=== PATIENT | female | born 1980 | race Caucasian/White ===

== ENCOUNTER 2017-02-12 08:35 | Emergency (ER) | payer OTHER ==
[~2017-02-12] VITALS: Ht 165.1 cm; Wt 122.5 kg
[~2017-02-12 08:35] MED LIST: ACETAMINOP80 MG/0.8 PO; ALBUTEROL SULF8.5 GM INH; ALBUTEROL2.5 MG/3 M INH; AMARYL4 MG PO; ATROVENT HFA12.9 GM INH; AURALGAN EAR DR14 ML OT; AZITHROMYCIN250 MG PO; AZITHROMYCIN500 MG PO; BACTRIM DS TAB1 EACH PO; BENADRYL25 MG PO; CLINDAMYCIN HC150 MG PO; CLINDAMYCIN HC300 MG PO; COREG25 MG PO; COZAAR100 MG PO; FUROSEMIDE40 MG PO; GUAIFENESIN-CO118 ML PO; HYCODAN SYRUP480 ML PO; IPRAT-ALBUT 0.5-3 ML INH; KETOROLAC TROME10 MG PO; LANTUS100 UNIT/1 SUB-Q; LASIX20 MG PO; LEVAQUIN500 MG PO; LEVAQUIN750 MG PO; METFORMIN HCL1000 MG PO; MUPIROCIN22 GM TOP; NORCO 5-325 TA1 EACH PO; ONE DAILY WOME1 EACH PO; PREDNISONE20 MG PO; PROAIR HFA8.5 GM INH; PROCHLORPERAZIN10 MG PO; PROVENTIL HFA6.7 GM INH; QVAR7.3 G1 INH; REGLAN10 MG PO; TRAMADOL HCL50 MG PO; ULTRAM50 MG PO; VENTOLIN HFA18 GM INH
[2017-02-12] MEDS ORDERED: TESSALON PERLE100 MG PO (09:14)
[2017-02-12] MEDS ORDERED: LEVAQUIN500 MG PO (09:14)
[2017-02-12] MEDS ORDERED: NORCO 10-325 T1 EACH PO (18:43)
== END 2017-02-12 10:00 | disposition home or self-care (01) ==
LOC: ED 08:35
DX: H66.91 Otitis media, unspecified, right ear (principal); E11.9 Type 2 diabetes mellitus without complications; I10 Essential (primary) hypertension; J45.909 Unspecified asthma, uncomplicated; F17.200 Nicotine dependence, unspecified, uncomplicated; Z87.01 Personal history of pneumonia (recurrent); Z86.14 Personal history of Methicillin resistant Staphylococcus aureus infection; Z98.51 Tubal ligation status; Z91.09 Other allergy status, other than to drugs and biological substances; Z88.0 Allergy status to penicillin; Z88.2 Allergy status to sulfonamides; Z88.1 Allergy status to other antibiotic agents; Z88.8 Allergy status to other drugs, medicaments and biological substances; Z88.6 Allergy status to analgesic agent; Z79.899 Other long term (current) drug therapy; Z79.84 Long term (current) use of oral hypoglycemic drugs
CPT/HCPCS: 96372; 99283; J1885

== ENCOUNTER 2017-02-12 17:36 | Emergency (ER) | payer OTHER ==
[~2017-02-12] VITALS: Ht 165.1 cm; Wt 122.5 kg
[~2017-02-12 17:36] MED LIST changes: +TESSALON PERLE100 MG PO
[2017-02-12] MEDS ORDERED: NORCO 10-325 T1 EACH PO (18:43)
== END 2017-02-12 19:10 | disposition home or self-care (01) ==
LOC: ED 17:36
DX: H92.01 Otalgia, right ear (principal); E11.9 Type 2 diabetes mellitus without complications; I10 Essential (primary) hypertension; J45.909 Unspecified asthma, uncomplicated; F17.200 Nicotine dependence, unspecified, uncomplicated; Z87.01 Personal history of pneumonia (recurrent); Z86.14 Personal history of Methicillin resistant Staphylococcus aureus infection; Z98.51 Tubal ligation status; Z91.09 Other allergy status, other than to drugs and biological substances; Z88.0 Allergy status to penicillin; Z88.2 Allergy status to sulfonamides; Z88.1 Allergy status to other antibiotic agents; Z88.8 Allergy status to other drugs, medicaments and biological substances; Z88.5 Allergy status to narcotic agent; Z88.6 Allergy status to analgesic agent; Z79.899 Other long term (current) drug therapy; Z79.84 Long term (current) use of oral hypoglycemic drugs
CPT/HCPCS: 99283

== ENCOUNTER 2017-02-13 02:11 | Emergency (ER) | payer OTHER ==
[~2017-02-13] VITALS: Ht 165.1 cm; Wt 122.5 kg
[~2017-02-13 02:11] MED LIST changes: +NORCO 10-325 T1 EACH PO
== END 2017-02-13 02:50 | disposition home or self-care (01) ==
LOC: ED 02:11
DX: H60.91 Unspecified otitis externa, right ear (principal); E11.9 Type 2 diabetes mellitus without complications; I10 Essential (primary) hypertension; Z86.14 Personal history of Methicillin resistant Staphylococcus aureus infection; J45.909 Unspecified asthma, uncomplicated; F17.200 Nicotine dependence, unspecified, uncomplicated; Z87.01 Personal history of pneumonia (recurrent); Z98.51 Tubal ligation status; Z91.09 Other allergy status, other than to drugs and biological substances; Z88.0 Allergy status to penicillin; Z88.2 Allergy status to sulfonamides; Z88.1 Allergy status to other antibiotic agents; Z88.8 Allergy status to other drugs, medicaments and biological substances; Z88.5 Allergy status to narcotic agent; Z79.899 Other long term (current) drug therapy; Z79.84 Long term (current) use of oral hypoglycemic drugs
CPT/HCPCS: 99282

== ENCOUNTER 2017-02-18 11:31 | Emergency (ER) | payer OTHER ==
[~2017-02-18] VITALS: Ht 162.6 cm; Wt 90.7 kg
[2017-02-18] MEDS ORDERED: ATROVENT HFA12.9 GM INH (11:48)
[2017-02-18] MEDS ORDERED: PREDNISONE20 MG PO (11:48)
[2017-02-18] MEDS ORDERED: VENTOLIN HFA18 GM INH (11:48)
[2017-02-18] MEDS ORDERED: ALBUTEROL2.5 MG/3 M INH (13:20)
== END 2017-02-18 13:37 | disposition home or self-care (01) ==
LOC: ED 11:31
DX: J44.1 Chronic obstructive pulmonary disease with (acute) exacerbation (principal); E11.9 Type 2 diabetes mellitus without complications; Z86.14 Personal history of Methicillin resistant Staphylococcus aureus infection; F17.200 Nicotine dependence, unspecified, uncomplicated; Z98.51 Tubal ligation status; Z88.0 Allergy status to penicillin; Z88.1 Allergy status to other antibiotic agents; Z88.2 Allergy status to sulfonamides; Z88.5 Allergy status to narcotic agent; Z88.8 Allergy status to other drugs, medicaments and biological substances; J45.909 Unspecified asthma, uncomplicated
CPT/HCPCS: 71010; 94640; 99283; J7512

== ENCOUNTER 2017-03-05 19:29 | Emergency (ER) | payer OTHER ==
[~2017-03-05] VITALS: Ht 162.6 cm; Wt 125.6 kg
[2017-03-05] MEDS ORDERED: TRAMADOL HCL50 MG PO (21:47)
== END 2017-03-05 21:58 | disposition home or self-care (01) ==
LOC: ED 19:29
DX: R10.9 Unspecified abdominal pain (principal); E11.9 Type 2 diabetes mellitus without complications; I10 Essential (primary) hypertension; Z86.14 Personal history of Methicillin resistant Staphylococcus aureus infection; F17.200 Nicotine dependence, unspecified, uncomplicated; Z98.51 Tubal ligation status; Z88.2 Allergy status to sulfonamides; Z88.0 Allergy status to penicillin; Z91.048 Other nonmedicinal substance allergy status; Z88.1 Allergy status to other antibiotic agents; Z88.6 Allergy status to analgesic agent; Z88.5 Allergy status to narcotic agent; Z88.8 Allergy status to other drugs, medicaments and biological substances; Z79.899 Other long term (current) drug therapy; Z79.84 Long term (current) use of oral hypoglycemic drugs; Z79.82 Long term (current) use of aspirin; Z79.51 Long term (current) use of inhaled steroids; J45.909 Unspecified asthma, uncomplicated
CPT/HCPCS: 74176; 81001; 96372; 99284; J1885

== ENCOUNTER 2017-04-24 21:12 | Emergency (ER) | payer OTHER ==
[~2017-04-24] VITALS: Ht 162.6 cm; Wt 125.6 kg
[2017-04-24] MEDS ORDERED: POTASSIUM CHLO20 ME1 PO (23:46)
[2017-04-24] MEDS ORDERED: PREDNISONE20 MG PO (23:46)
[2017-04-24] MEDS ORDERED: LASIX40 MG PO (23:46)
[2017-04-24] MEDS ORDERED: ELIQUIS5 MG PO (23:46)
--- NOTE | 2017-04-25 17:52 | EKG ---
[facility] [address] [place] [address] Signed Normal sinus rhythm Left posterior fascicular block Abnormal ECG When compared with ECG of 12-JAN-2016 19:18, Nonspecific T wave abnormality now evident in Anterolateral leads Confirmed by MAK CARIAS MD ([id number]) on 04/25/2017 5:51:59 PM Electronically Signed By: MAK CARIAS MD 04/25/17 1752 PATIENT NAME: CHAY ANNE NANCY Electrocardiogram DATE OF : 80 PHYSICIAN: MAK CARIAS MD REPORT #: [id number] REPORT IS CONFIDENTIAL AND NOT TO BE RELEASED WITHOUT AUTHORIZATION
[2017-05-20] MEDS ORDERED: LEVAQUIN750 MG PO (00:33)
[2017-05-20] MEDS ORDERED: ZOFRAN ODT4 MG PO (00:33)
== END 2017-04-24 23:57 | disposition home or self-care (01) ==
LOC: ED 21:12
DX: J81.1 Chronic pulmonary edema (principal); R79.89 Other specified abnormal findings of blood chemistry; E11.9 Type 2 diabetes mellitus without complications; I10 Essential (primary) hypertension; J45.909 Unspecified asthma, uncomplicated; F17.200 Nicotine dependence, unspecified, uncomplicated; Z87.01 Personal history of pneumonia (recurrent); Z98.51 Tubal ligation status; Z98.818 Other dental procedure status; Z88.8 Allergy status to other drugs, medicaments and biological substances; Z88.0 Allergy status to penicillin; Z88.2 Allergy status to sulfonamides; Z88.1 Allergy status to other antibiotic agents; Z88.6 Allergy status to analgesic agent; Z79.84 Long term (current) use of oral hypoglycemic drugs; Z79.899 Other long term (current) drug therapy
CPT/HCPCS: 71046; 80053; 82803; 83605; 83880; 84484; 85025; 85379; 87502; 93005; 93010; 94640; 96374; 96375; 99283; J0780; J1200; J1885; J2930

== ENCOUNTER 2017-05-01 15:08 | Emergency (ER) | payer OTHER ==
[~2017-05-01] VITALS: Ht 162.6 cm; Wt 125.6 kg
[~2017-05-01 15:08] MED LIST changes: +ELIQUIS5 MG PO; +LASIX40 MG PO; +POTASSIUM CHLO20 ME1 PO
[2017-05-01] MEDS ORDERED: ELIQUIS5 MG PO (15:49)
[2017-05-20] MEDS ORDERED: LEVAQUIN750 MG PO (00:33)
[2017-05-20] MEDS ORDERED: ZOFRAN ODT4 MG PO (00:33)
== END 2017-05-01 19:49 | disposition home or self-care (01) ==
LOC: ED 15:08
DX: I80.8 Phlebitis and thrombophlebitis of other sites (principal); E11.9 Type 2 diabetes mellitus without complications; I10 Essential (primary) hypertension; J45.909 Unspecified asthma, uncomplicated; F17.200 Nicotine dependence, unspecified, uncomplicated; Z87.01 Personal history of pneumonia (recurrent); Z98.51 Tubal ligation status; Z88.8 Allergy status to other drugs, medicaments and biological substances; Z88.0 Allergy status to penicillin; Z88.1 Allergy status to other antibiotic agents; Z88.5 Allergy status to narcotic agent; Z88.2 Allergy status to sulfonamides; Z88.6 Allergy status to analgesic agent; Z79.84 Long term (current) use of oral hypoglycemic drugs; Z79.899 Other long term (current) drug therapy
CPT/HCPCS: 71250; 80048; 85025; 85379; 85610; 85730; 93971; 99284

== ENCOUNTER → 2017-06-16 | Emergency (ER) | payer OTHER ==
[~2017-06-16] VITALS: Ht 162.6 cm; Wt 125.8 kg
[~2017-06-16] MED LIST changes: +ZOFRAN ODT4 MG PO
--- OUTSIDE RECORDS SUMMARY | 2017-06-16 19:55 | XMS | Clinical Summary ---
Demographics + + + | Address | [address] | | | [place] [address] | + + + | Home Phone | | + + + | Preferred Language | Unknown | + + + | Marital Status | Single | + + + | Congregational Affiliation | Unknown | + + + | Race | White | + + + | Ethnic Group | Other Race | + + + Author + + + | Author | [facility] | + + + | Organization | [facility] | + + + | Address | Unknown | + + + | Phone | Unavailable | + + + Care Team Providers + +------+ + | Care Stock Preparation Supervisor Name | Role | Phone | + +------+ + | Lluvia Mendes | PP | | + +------+ + Source Comments [facility] is fully live [facility] both [facility] and [facility] Allergies Not on File Current Medications Not on file Active Problems Not on file Social History + +-------+ +--------+------+ | Tobacco Use | Types | Packs/Day | Years | Date | | | | | Used | | + +-------+ +--------+------+ | Never Assessed | | | | | + +-------+ +--------+------+ + + + | Sex Assigned at | Date Recorded | | | | + + + | Not on file | | + + + Plan of Treatment + + + + + | Health Maintenance | Due Date | Last Done | Comments | + + + + + | INFLUENZA VACCINE | | | | | (FLU SHOT) | 7 | | | + + + + + Results Not on filefrom Last 3 Months"
--- OUTSIDE RECORDS SUMMARY | 2017-06-16 19:55 | XMS | Clinical Summary ---
Demographics + + + | Address | [address] | | | [place] [address] | + + + | Home Phone | | + + + | Preferred Language | Unknown | + + + | Marital Status | Single | + + + | Anglican Affiliation | Unknown | + + + | Race | White | + + + | Ethnic Group | Other Race | + + + Author + + + | Author | [facility] | + + + | Organization | [facility] | + + + | Address | Unknown | + + + | Phone | Unavailable | + + + Care Team Providers + +------+ + | Care Aadc Plans Staff Officer Name | Role | Phone | + +------+ + | Lluvia Mendes | PP | | + +------+ + Source Comments [place] is fully live on both [facility] and [facility] Allergies Not on File Current Medications Not [...]
== END | disposition home or self-care (01) ==
LOC: ED 19:21
DX: R60.0 Localized edema (principal); I10 Essential (primary) hypertension; E11.9 Type 2 diabetes mellitus without complications; J45.909 Unspecified asthma, uncomplicated; F17.200 Nicotine dependence, unspecified, uncomplicated; Z86.14 Personal history of Methicillin resistant Staphylococcus aureus infection; Z87.01 Personal history of pneumonia (recurrent); Z91.09 Other allergy status, other than to drugs and biological substances; Z88.0 Allergy status to penicillin; Z88.2 Allergy status to sulfonamides; Z88.1 Allergy status to other antibiotic agents; Z88.6 Allergy status to analgesic agent; Z88.8 Allergy status to other drugs, medicaments and biological substances; Z88.5 Allergy status to narcotic agent; Z79.899 Other long term (current) drug therapy; Z79.84 Long term (current) use of oral hypoglycemic drugs
CPT/HCPCS: 80053; 81001; 83690; 83880; 84703; 85025; 96374; 99283; J2405